=== PATIENT | female | born 1970 | race Caucasian/White ===

== ENCOUNTER 2016-10-06 15:53 | Emergency (ER) | payer SELFPAY ==
[~2016-10-06] VITALS: Ht 172.7 cm; Wt 100.0 kg
[~2016-10-06 15:53] MED LIST: ALPRAZOLAM0.25 MG; ANTIVERT OR; AVAPRO OR; AZITHROMYCIN500 MG PO; AZO-CRANBERY450 MG OR; CIPRO500 MG OR; CIPROFLOXACN500 MG PO; FIORICET PO; FLEXERIL OR; FLONASE NASAL50 MCG; FLUOXETINE HCL20 MG; HYDROCHLOROT12.5 MG PO; HYDROCO/APAP1 TA9 PO; LORTAB 10 OR; LORTAB 5/3255 MG PO; LORTAB 7.5 OR; LORTAB5 OR; LORTAB5 PO; METROGEL VAG0.75 % VA; METRONIDAZOL500 MG PO; MOTRIN200 MG PO; MOTRIN600 MG OR; MOTRIN800 MG/TAB PO; NAPROSYN500 MG PO; NO HOME MEDS; NO MEDS; PAROXETINE10 MG PO; PERCOCET 10/31 COMBO PO; PREDNISONE10 MG PO; PROZAC10 MG PO; PROZAC20 M1 OR; PROZAC20 M1 PO; PYRIDIUM200 MG PO; ULTRAM50 M1 PO; VENLAFAXINE H37.5 M1 PO; VICODIN1 TAB OR; XANAX0.25 MG PO; ZITHROMAX250 MG OR; ZITHROMAX250 MG PO; ZITHROMAX500 MG PO; ZOFRAN ODT4 MG PO; ZOFRAN ODT8 MG OR; ZOFRAN ODT8 MG SL
[2016-10-06 16:38] LABS: HEMOGLOBIN 15.1 g/dl (12.0-16.0); IMMATURE GRANULOCYTES 0.2 % (0.0-1.0); MEAN CELL VOLUME 84.7 fL CALC (80.0-100.0); MEAN CORPUSCULAR HGB 27.8 pG CALC (26.0-32.0); MEAN CORPUSCULAR HGB CONC 32.8 g/L CALC (32.0-36.0); NEUT# 5.66 thou/uL (2.00-7.15); RED BLOOD COUNT 5.43 mill/uL (4.20-5.60); RED CELL DISTRI WIDTH 13.2 % (11.5-15.5)
[2016-10-06 16:51] LABS: ALBUMIN 4.4 g/dL (3.2-5.0); ALKALINE PHOSPHATASE 67 u/l (38-126); ANION GAP 16 (6-22 (CALC)); BILIRUBIN, TOTAL 0.5 mg/dL (0.0-1.4); BUN 17 mg/dL (7-17); BUN/CREATININE RATIO 20 (12-20 (CALC)); CALCIUM 9.8 mg/dL (8.4-10.2); CARBON DIOXIDE 29 mmol/l (22-30); CHLORIDE 103 mmol/l (95-108); CREATININE 0.8 mg/dL (0.5-1.0); GFR > 60 ML/MIN (>=60 (CALC)); GFR FOR AFR.AMER. > 60 ML/MIN (>=60 (CALC)); GLUCOSE 89 mg/dL (65-105); LIPASE 99 u/l (23-300); SGOT/AST 21 u/l (14-36); SGPT/ALT 30 u/l (9-52); SODIUM 143 mmol/l (137-146); TOTAL PROTEIN 7.8 g/dL (6.3-8.2)
[2016-10-06 18:13] LABS: URINE BILIRUBIN - DIPSTICK NEGATIVE (NEGATIVE); URINE BLOOD DIPSTICK TRACE-INTACT (NEGATIVE); URINE CLARITY CLEAR; URINE COLOR YELLOW; URINE GLUCOSE - DIPSTICK NEGATIVE (NEGATIVE); URINE KETONE NEGATIVE (NEGATIVE); URINE LEUK ESTERASE NEGATIVE (Negative); URINE NITRITE - DIPSTICK NEGATIVE (Negative); URINE PH 5.5 (4.5-8.0); URINE PROTEIN - DIPSTICK NEGATIVE (NEG-TRACE); URINE SPECIFIC GRAVITY >=1.030; URINE UROBILINOGEN - DIPSTICK 0.2 E.U./dL (0.2)
[2016-10-06] MEDS ORDERED: TAMSULOSIN0.4 MG PO (19:26)
[2016-10-06] MEDS ORDERED: OMNICEF300 M1 PO (19:26)
[2016-10-06] MEDS ORDERED: MOTRIN400 MG PO (19:26)
[2016-10-06 19:35] VITALS: BP 147/80
== END 2016-10-06 19:37 | disposition home or self-care (01) | DRG 392 ==
LOC: ED 15:53
PROVIDERS: Family Medicine
DX: R10.31 Right lower quadrant pain (principal); I10 Essential (primary) hypertension; J45.909 Unspecified asthma, uncomplicated; F41.9 Anxiety disorder, unspecified; Z87.442 Personal history of urinary calculi

== ENCOUNTER 2017-03-10 22:16 | Emergency (ER) | payer SELFPAY ==
[~2017-03-10] VITALS: Ht 172.7 cm; Wt 108.6 kg
[~2017-03-10 22:16] MED LIST changes: +MOTRIN400 MG PO; +OMNICEF300 M1 PO; +TAMSULOSIN0.4 MG PO
[2017-03-11] MEDS ORDERED: LORTAB 1010 MG PO (00:32)
[2017-03-11] MEDS ORDERED: PREVACID30 M3 PO (00:32)
[2017-03-11 00:44] VITALS: BP 144/89
== END 2017-03-11 00:47 | disposition home or self-care (01) | DRG 103 ==
LOC: ED 22:16
DX: R51 Headache (principal); M54.2 Cervicalgia; R11.2 Nausea with vomiting, unspecified

== ENCOUNTER 2017-03-13 18:49 | Emergency (ER) | payer SELFPAY ==
[~2017-03-13] VITALS: Ht 172.7 cm; Wt 108.6 kg
[~2017-03-13 18:49] MED LIST changes: +LORTAB 1010 MG PO; +PREVACID30 M3 PO
[2017-03-13 22:26] LABS: HEMATOCRIT 45.4 % (37.0-47.0); HEMOGLOBIN 14.8 g/dl (12.0-16.0); IMMATURE GRANULOCYTES 0.2 % (0.0-1.0); MEAN CELL VOLUME 85.2 fL CALC (80.0-100.0); MEAN CORPUSCULAR HGB 27.8 pG CALC (26.0-32.0); MEAN CORPUSCULAR HGB CONC 32.6 g/L CALC (32.0-36.0); NEUT# 5.68 thou/uL (2.00-7.15); RED BLOOD COUNT 5.33 mill/uL (4.20-5.60)
[2017-03-13 22:45] LABS: ANION GAP 17 (6-22 (CALC)); BUN 17 mg/dL (7-17); BUN/CREATININE RATIO 24 (12-20 (CALC)); CALCIUM 10.1 mg/dL (8.4-10.2); CARBON DIOXIDE 24 mmol/l (22-30); CHLORIDE 106 mmol/l (95-108); CREATININE 0.7 mg/dL (0.5-1.0); GFR > 60 ML/MIN (>=60 (CALC)); GFR FOR AFR.AMER. > 60 ML/MIN (>=60 (CALC)); GLUCOSE 89 mg/dL (65-105); POTASSIUM 4.1 mmol/l (3.5-5.1); SODIUM 143 mmol/l (137-146)
[2017-03-14 00:30] VITALS: BP 138/92
== END 2017-03-14 00:30 | disposition home or self-care (01) | DRG 103 ==
LOC: ED 18:49
PROVIDERS: Family Medicine
DX: R51 Headache (principal); R11.2 Nausea with vomiting, unspecified

== ENCOUNTER 2018-03-09 13:47 | Emergency (ER) | payer BC ==
[~2018-03-09] VITALS: Ht 172.7 cm; Wt 111.8 kg
[2018-03-09] MEDS ORDERED: ATENOLOL25 MG PO (14:01)
[2018-03-09 14:31] LABS: HEMATOCRIT 45.8 % (37.0-47.0); HEMOGLOBIN 15.2 g/dl (12.0-16.0); IMMATURE GRANULOCYTES 0.2 % (0.0-5.0); MEAN CELL VOLUME 83.6 fL CALC (80.0-100.0); MEAN CORPUSCULAR HGB 27.7 pG CALC (26.0-32.0); MEAN CORPUSCULAR HGB CONC 33.2 g/L CALC (32.0-36.0); NEUT# 7.09 thou/uL (2.00-7.15); RED BLOOD COUNT 5.48 mill/uL (4.20-5.60); RED CELL DISTRI WIDTH 12.9 % (11.5-15.5)
[2018-03-09 14:43] LABS: ALBUMIN 4.4 g/dL (3.2-5.0); ALKALINE PHOSPHATASE 91 u/l (38-126); ANION GAP 15 (6-22 (CALC)); BILIRUBIN, TOTAL 0.6 mg/dL (0.0-1.4); BUN 14 mg/dL (7-17); BUN/CREATININE RATIO 23 (12-20 (CALC)); CARBON DIOXIDE 20 mmol/l (22-30); CHLORIDE 108 mmol/l (95-108); CREATININE 0.6 mg/dL (0.5-1.0); GFR > 60 ML/MIN (>=60 (CALC)); GFR FOR AFR.AMER. > 60 ML/MIN (>=60 (CALC)); LIPASE 72 u/l (23-300); SGOT/AST 28 u/l (14-36); SODIUM 139 mmol/l (137-146); TOTAL PROTEIN 7.7 g/dL (6.3-8.2)
[2018-03-09 15:38] LABS: URINE BILIRUBIN - DIPSTICK NEGATIVE (NEGATIVE); URINE BLOOD DIPSTICK TRACE-LYSED (NEGATIVE); URINE COLOR YELLOW; URINE GLUCOSE - DIPSTICK NEGATIVE (NEGATIVE); URINE KETONE NEGATIVE (NEGATIVE); URINE LEUK ESTERASE NEGATIVE (NEGATIVE); URINE NITRITE - DIPSTICK NEGATIVE (Negative); URINE PH 5.5 (4.5-8.0); URINE PROTEIN - DIPSTICK NEGATIVE (NEG-TRACE); URINE SPECIFIC GRAVITY >=1.030; URINE UROBILINOGEN - DIPSTICK 0.2 E.U./dL (0.2)
[2018-03-09] MEDS ORDERED: ZOFRAN4 MG/TAB PO (16:08)
[2018-03-09] MEDS ORDERED: VENTOLIN HFA IN (16:08)
[2018-03-09] MEDS ORDERED: ZITHROMAX500 MG PO (16:08)
[2018-03-09 16:11] VITALS: BP 110/74
== END 2018-03-09 16:52 | disposition home or self-care (01) | DRG 866 ==
LOC: ED 13:47
DX: B34.9 Viral infection, unspecified (principal); J45.909 Unspecified asthma, uncomplicated

== ENCOUNTER 2018-06-01 17:36 | Emergency (ER) | payer BC ==
[~2018-06-01] VITALS: Ht 172.7 cm; Wt 105.5 kg
[~2018-06-01 17:36] MED LIST changes: +ATENOLOL25 MG PO; +VENTOLIN HFA IN; +ZOFRAN4 MG/TAB PO
[2018-06-01] MEDS ORDERED: KEFLEX500 M1 PO (19:06)
[2018-06-01 19:20] VITALS: BP 126/74
== END 2018-06-01 19:20 | disposition home or self-care (01) | DRG 153 ==
LOC: ED 17:36
DX: J02.9 Acute pharyngitis, unspecified (principal); H92.01 Otalgia, right ear; I10 Essential (primary) hypertension

== ENCOUNTER 2018-06-16 19:32 | Emergency (ER) | payer BC ==
[~2018-06-16] VITALS: Ht 172.7 cm; Wt 113.0 kg
[~2018-06-16 19:32] MED LIST changes: +KEFLEX500 M1 PO
--- NOTE | 2018-06-16 20:43 | NUR ---
BREATHING TREATMENT GIVEN.
[2018-06-16] MEDS ORDERED: FLONASE AL50 MCG/ACT (21:14)
[2018-06-16] MEDS ORDERED: ZPAK PO (21:14)
[2018-06-16] MEDS ORDERED: ROBITUSSIN AC10 ML PO (21:14)
[2018-06-16] MEDS ORDERED: MEDDOSEPAK PO (21:15)
[2018-06-16 21:30] VITALS: BP 150/85
== END 2018-06-16 21:30 | disposition home or self-care (01) | DRG 153 ==
LOC: ED 19:32
DX: J06.9 Acute upper respiratory infection, unspecified (principal); R50.9 Fever, unspecified; R05 Cough; R07.89 Other chest pain

== ENCOUNTER 2018-11-30 14:13 | Emergency (ER) | payer BC ==
[~2018-11-30] VITALS: Ht 172.7 cm; Wt 106.8 kg
[~2018-11-30 14:13] MED LIST changes: +FLONASE AL50 MCG/ACT; +MEDDOSEPAK PO; +ROBITUSSIN AC10 ML PO; +ZPAK PO
[2018-11-30 15:06] LABS: HEMATOCRIT 42.5 % (37.0-47.0); HEMOGLOBIN 13.7 g/dl (12.0-16.0); IMMATURE GRANULOCYTES 0.3 % (0.0-5.0); MEAN CELL VOLUME 81.6 fL CALC (80.0-100.0); MEAN CORPUSCULAR HGB 26.3 pG CALC (26.0-32.0); MEAN CORPUSCULAR HGB CONC 32.2 g/L CALC (32.0-36.0); NEUT# 4.04 thou/uL (2.00-7.15); RED BLOOD COUNT 5.21 mill/uL (4.20-5.60); RED CELL DISTRI WIDTH 13.3 % (11.5-15.5)
[2018-11-30 15:14] LABS: ALBUMIN 4.1 g/dL (3.2-5.0); ALKALINE PHOSPHATASE 78 u/l (38-126); ANION GAP 15 (6-22 (CALC)); BILIRUBIN, TOTAL 0.4 mg/dL (0.0-1.4); BUN 16 mg/dL (7-17); BUN/CREATININE RATIO 28 (12-20 (CALC)); CARBON DIOXIDE 22 mmol/l (22-30); CHLORIDE 105 mmol/l (95-108); CREATININE 0.6 mg/dL (0.5-1.0); GFR > 60 ML/MIN (>=60 (CALC)); GFR FOR AFR.AMER. > 60 ML/MIN (>=60 (CALC)); POTASSIUM 4.2 mmol/l (3.5-5.1); SGOT/AST 47 u/l (14-36); SODIUM 138 mmol/l (137-146); TOTAL PROTEIN 7.7 g/dL (6.3-8.2)
[2018-11-30] MEDS ORDERED: ALBUTEROL SUL0.083 % IN (15:17)
[2018-11-30] MEDS ORDERED: KEFLEX500 M1 PO (15:41)
[2018-11-30] MEDS ORDERED: MEDDOSEPAK PO (15:41)
[2018-11-30] MEDS ORDERED: PROVENTIL108 MCG/AC IN (15:45)
[2018-11-30 16:18] VITALS: BP 132/85
== END 2018-11-30 16:18 | disposition home or self-care (01) | DRG 153 ==
LOC: ED 14:13
DX: J02.0 Streptococcal pharyngitis (principal); J45.901 Unspecified asthma with (acute) exacerbation; I10 Essential (primary) hypertension

== ENCOUNTER 2019-08-26 06:15 | Emergency (ER) | payer BC ==
[~2019-08-26] VITALS: Ht 172.7 cm; Wt 110.0 kg
[~2019-08-26 06:15] MED LIST changes: +ALBUTEROL SUL0.083 % IN; +PROVENTIL108 MCG/AC IN
[2019-08-26 06:50] LABS: HEMATOCRIT 44.9 % (37.0-47.0); HEMOGLOBIN 14.4 g/dl (12.0-16.0); IMMATURE GRANULOCYTES 0.1 % (0.0-5.0); MEAN CORPUSCULAR HGB 26.6 pG CALC (26.0-32.0); MEAN CORPUSCULAR HGB CONC 32.1 g/dL CAL (32.0-36.0); NEUT# 4.06 thou/uL (2.00-7.15); RED BLOOD COUNT 5.41 mill/uL (4.20-5.60); RED CELL DISTRI WIDTH 13.7 % (11.5-15.5)
[2019-08-26 07:30] LABS: ALBUMIN 4.7 g/dL (3.2-5.0); ALKALINE PHOSPHATASE 81 u/l (38-126); ANION GAP 13 (6-22 (CALC)); BUN 14 mg/dL (7-17); BUN/CREATININE RATIO 17 (12-20 (CALC)); CARBON DIOXIDE 23 mmol/l (22-30); CHLORIDE 106 mmol/l (95-108); CREATININE 0.8 mg/dL (0.5-1.0); GFR > 60 ML/MIN (>=60 (CALC)); GFR FOR AFR.AMER. > 60 ML/MIN (>=60 (CALC)); LIPASE 94 u/l (23-300); POTASSIUM 3.4 mmol/l (3.5-5.1); SGOT/AST 29 u/l (14-36); SODIUM 139 mmol/l (137-146); TOTAL PROTEIN 7.9 g/dL (6.3-8.2)
[2019-08-26 07:31] LABS: BILIRUBIN, TOTAL 0.6 mg/dL (0.0-1.4)
[2019-08-26 07:55] LABS: URINE BILIRUBIN - DIPSTICK NEGATIVE (NEGATIVE); URINE BLOOD DIPSTICK LARGE (NEGATIVE); URINE COLOR YELLOW; URINE GLUCOSE - DIPSTICK NEGATIVE (NEGATIVE); URINE KETONE TRACE mg/dL (NEGATIVE); URINE LEUK ESTERASE NEGATIVE (NEGATIVE); URINE NITRITE - DIPSTICK NEGATIVE (Negative); URINE PROTEIN - DIPSTICK TRACE mg/dL (NEG-TRACE); URINE SPECIFIC GRAVITY >=1.030; URINE UROBILINOGEN - DIPSTICK 0.2 E.U./dL (0.2)
[2019-08-26 08:08] LABS: URINE WBC 0-2 WBC/hpf (0-5)
[2019-08-26 08:09] LABS: URINE BACTERIA FEW hpf; URINE SQUAMOUS EPITHELIAL CELL MANY EPI/hpf (0-FEW)
[2019-08-26 08:33] VITALS: BP 125/66
[2019-08-26] MEDS ORDERED: HYDROCO/APAP1 TA9 PO (08:46)
[2019-08-26] MEDS ORDERED: TAMSULOSIN0.4 MG PO (08:46)
[2019-08-26] MEDS ORDERED: ONDANSETRON4 MG PO (08:46)
== END 2019-08-26 08:58 | disposition home or self-care (01) | DRG 694 ==
LOC: ED 06:15
DX: N20.1 Calculus of ureter (principal); I10 Essential (primary) hypertension; Z87.442 Personal history of urinary calculi

== ENCOUNTER 2020-04-03 19:15 | Emergency (ER) | payer BC ==
[~2020-04-03] VITALS: Ht 172.7 cm; Wt 109.0 kg
[~2020-04-03 19:15] MED LIST changes: +ONDANSETRON4 MG PO
[2020-04-03] MEDS ORDERED: ASPIRIN 81 LOW81 MG (19:47)
[2020-04-03 22:00] VITALS: BP 120/68
== END 2020-04-03 22:30 | disposition home or self-care (01) | DRG 395 ==
LOC: ED 19:15
DX: T18.128A Food in esophagus causing other injury, initial encounter (principal); I10 Essential (primary) hypertension; J45.909 Unspecified asthma, uncomplicated; X58.XXXA Exposure to other specified factors, initial encounter
CPT/HCPCS: J1610

== ENCOUNTER 2022-01-26 08:13 | Emergency (ER) | payer SELFPAY ==
[~2022-01-26] VITALS: Ht 172.7 cm; Wt 109.0 kg
[~2022-01-26 08:13] MED LIST changes: +ASPIRIN 81 LOW81 MG
[2022-01-26 08:21] VITALS: BP 137/80
[2022-01-26 08:31] VITALS: BP 103/57
[2022-01-26] MEDS ORDERED: NEURONTIN300 MG PO (08:53)
[2022-01-26 09:00] VITALS: BP 119/76
[2022-01-26 09:20] VITALS: BP 119/76
== END 2022-01-26 09:31 | disposition home or self-care (01) | DRG 74 ==
LOC: ED 08:13
DX: G56.01 Carpal tunnel syndrome, right upper limb (principal); I10 Essential (primary) hypertension; F41.8 Other specified anxiety disorders

== ENCOUNTER 2022-05-27 17:34 | Emergency (ER) | payer BC ==
[~2022-05-27] VITALS: Ht 172.7 cm; Wt 102.0 kg
[~2022-05-27 17:34] MED LIST changes: +NEURONTIN300 MG PO
[2022-05-27 17:47] VITALS: BP 125/88
[2022-05-27 17:55] VITALS: BP 122/72
[2022-05-27 18:01] VITALS: BP 116/78
[2022-05-27 18:10] LABS: BASO% 0.5 % (0-3); EOS% 4.9 % (0-8); HEMATOCRIT 44.6 % (37.0-47.0); HEMOGLOBIN 14.1 g/dl (12.0-16.0); LYMPH% 46.5 % (15-41); MEAN CORPUSCULAR HGB 26.6 pG CALC (26.0-32.0); MEAN CORPUSCULAR HGB CONC 31.6 g/dL CAL (32.0-36.0); MONO% 8.8 % (2-13); NEUT# 2.24 thou/uL (2.00-7.15); NEUT% 39.3 % (42-76); RED BLOOD COUNT 5.31 mill/uL (4.20-5.60); RED CELL DISTRI WIDTH 13.2 % (11.5-15.5)
[2022-05-27 18:27] LABS: ALBUMIN 4.5 g/dL (3.2-5.0); ALKALINE PHOSPHATASE 75 u/l (38-126); ANION GAP 12 (6-22 (CALC)); BUN 15 mg/dL (7-17); BUN/CREATININE RATIO 25 (12-20 (CALC)); CARBON DIOXIDE 27 mmol/l (22-30); CHLORIDE 109 mmol/l (95-108); CREATININE 0.6 mg/dL (0.5-1.0); GFR FOR AFR.AMER. > 60 ML/MIN (>=60 (CALC)); GFR OTHER RACES > 60 ML/MIN (>=60 (CALC)); POTASSIUM 3.6 mmol/l (3.5-5.1); SODIUM 144 mmol/l (137-146); TOTAL PROTEIN 7.7 g/dL (6.3-8.2)
[2022-05-27 18:30] VITALS: BP 116/72
[2022-05-27 18:30] LABS: BILIRUBIN, TOTAL 0.3 mg/dL (0.02-1.3); SGOT/AST 88 u/l (14-36)
[2022-05-27] MEDS ORDERED: PREDNISONE50 MG PO (18:54)
[2022-05-27] MEDS ORDERED: VENTOLIN HFA IN (18:54)
[2022-05-27 19:00] VITALS: BP 118/72
== END 2022-05-27 19:11 | disposition home or self-care (01) | DRG 153 ==
LOC: ED 17:34
PROVIDERS: Family Medicine
DX: J06.9 Acute upper respiratory infection, unspecified (principal); J98.01 Acute bronchospasm; R07.9 Chest pain, unspecified; R06.02 Shortness of breath; I10 Essential (primary) hypertension; Z20.822 Contact with and (suspected) exposure to COVID-19

== ENCOUNTER 2022-05-31 21:35 | Emergency (ER) | payer BC ==
[2022-05-31] VITALS (7 sets, daily range): BP systolic 121–141; BP diastolic 72–86
[~2022-05-31] VITALS: Ht 172.7 cm; Wt 95.4 kg
[~2022-05-31 21:35] MED LIST changes: +PREDNISONE50 MG PO
[2022-05-31 22:17] LABS: BASO% 0.3 % (0-3); HEMATOCRIT 42.2 % (37.0-47.0); HEMOGLOBIN 13.5 g/dl (12.0-16.0); IMMATURE GRANULOCYTES 0.1 % (0.0-5.0); LYMPH% 32.6 % (15-41); MEAN CELL VOLUME 82.6 fL CALC (80.0-100.0); MEAN CORPUSCULAR HGB 26.4 pG CALC (26.0-32.0); MONO% 6.6 % (2-13); NEUT# 5.76 thou/uL (2.00-7.15); NEUT% 58.4 % (42-76); RED BLOOD COUNT 5.11 mill/uL (4.20-5.60); RED CELL DISTRI WIDTH 12.9 % (11.5-15.5)
[2022-05-31 22:36] LABS: ALBUMIN 4.2 g/dL (3.2-5.0); ALKALINE PHOSPHATASE 74 u/l (38-126); ANION GAP 12 (6-22 (CALC)); BILIRUBIN, TOTAL 0.2 mg/dL (0.02-1.3); BUN 21 mg/dL (7-17); BUN/CREATININE RATIO 35 (12-20 (CALC)); CARBON DIOXIDE 25 mmol/l (22-30); CHLORIDE 109 mmol/l (95-108); CREATININE 0.6 mg/dL (0.5-1.0); GFR FOR AFR.AMER. > 60 ML/MIN (>=60 (CALC)); GFR OTHER RACES > 60 ML/MIN (>=60 (CALC)); POTASSIUM 3.9 mmol/l (3.5-5.1); SGOT/AST 31 u/l (14-36); SODIUM 142 mmol/l (137-146); TOTAL PROTEIN 7.3 g/dL (6.3-8.2)
[2022-06-01 00:17] VITALS: BP 112/76
[2022-06-01 00:53] VITALS: BP 112/76
== END 2022-06-01 00:55 | disposition home or self-care (01) | DRG 305 ==
LOC: ED 21:35
PROVIDERS: Emergency Medicine
DX: I10 Essential (primary) hypertension (principal); J45.909 Unspecified asthma, uncomplicated; F41.9 Anxiety disorder, unspecified; F32.A Depression, unspecified

== ENCOUNTER 2022-11-19 22:12 | Emergency (ER) | payer OTHER ==
[~2022-11-19] VITALS: Ht 172.7 cm; Wt 100.0 kg
[2022-11-19 22:19] VITALS: BP 126/87
[2022-11-19 23:01] VITALS: BP 118/72
[2022-11-19] MEDS ORDERED: ENALAPRIL20 MG PO (23:09)
[2022-11-19] MEDS ORDERED: HYDROCHLOROT12.5 M1 PO (23:10)
[2022-11-20 00:01] VITALS: BP 116/63
[2022-11-20 01:01] VITALS: BP 127/88
[2022-11-20 02:01] VITALS: BP 110/68
[2022-11-20] MEDS ORDERED: MOTRIN800 MG PO (02:35)
[2022-11-20] MEDS ORDERED: PERCOCET 5/325M1 TAB PO ×2 (02:37→02:39)
[2022-11-20 02:45] VITALS: BP 110/68
== END 2022-11-20 02:45 | disposition home or self-care (01) | DRG 563 ==
LOC: ED 22:12
DX: S83.92XA Sprain of unspecified site of left knee, initial encounter (principal); S83.91XA Sprain of unspecified site of right knee, initial encounter; S73.101A Unspecified sprain of right hip, initial encounter; S43.401A Unspecified sprain of right shoulder joint, initial encounter; I10 Essential (primary) hypertension; J45.909 Unspecified asthma, uncomplicated; F41.9 Anxiety disorder, unspecified; F32.A Depression, unspecified; W01.0XXA Fall on same level from slipping, tripping and stumbling without subsequent striking against object, initial encounter; Y92.481 Parking lot as the place of occurrence of the external cause